=== PATIENT | female | born 1950 | race Caucasian/White ===

== ENCOUNTER 2017-10-04 09:20 | Inpatient (IN) | payer MEDICARE, BC ==
[~2017-10-04] VITALS: Ht 154.9 cm; Wt 87.4 kg
[~2017-10-04 09:20] MED LIST: DEXL60CA2 PO; DICL75TA2 PO; HYDR-3237 PO; LEVO75TA5 PO; LOSA25TA5 PO; MISO100T4 PO; SIMV20TA3 PO
[2017-10-04] MEDS ORDERED: VANCOMYCIN PER PHARMACY MC ONE (09:37)
[2017-10-04] MEDS ORDERED: MIDAZOLAM 1 MG/ML, 2ML ONE (09:58)
[2017-10-04] MEDS ORDERED: FENTANYL PF 250 MCG/5ML ONE (09:59)
[2017-10-04] MEDS ORDERED: GABAPENTIN 300 MG CAPSULE PO ONE (10:00)
[2017-10-04] MEDS ORDERED: OxyconTIN ER 10 MG TAB.ER PO ONE (10:00)
[2017-10-04] MEDS ORDERED: ACETAMINOPHEN 500 MG TABLET PO ONE (10:00)
[2017-10-04] MEDS ORDERED: ONDANSETRON ODT 8 MG PO ONE (10:00)
[2017-10-04] MEDS ORDERED: VANCOMYCIN 1,600 MG in SODIUM CHLORIDE 0.9% 250 ML IV ONE (10:30)
[2017-10-04] MEDS ORDERED: TRANEXAMIC ACID 100 MG/ML, 10ML ONE (10:55)
[2017-10-04] MEDS ORDERED: ROPIvacaine/PF 0.5%, 20 ML ONE (10:55)
[2017-10-04] MEDS ORDERED: KETOROLAC 60 MG/2 ML ONE (10:55)
[2017-10-04] MEDS ORDERED: EPINEPHRINE 1 MG/ML, 1ML ONE (10:56)
[2017-10-04] MEDS ORDERED: morphine SULFATE/PF 1 MG/ML, 10ML ONE (10:56)
[2017-10-04] MEDS ORDERED: SODIUM CHLORIDE 0.9% 100 ML ONE (10:56)
[2017-10-04] MEDS ORDERED: LACTATED RINGERS 1,000 ML IV SCH (11:13)
[2017-10-04] MEDS ORDERED: PROPOFOL 10 MG/ML, 20ML ONE (11:16)
[2017-10-04] MEDS ORDERED: CEFAZOLIN 1,000 MG ONE (11:16)
[2017-10-04] MEDS ORDERED: DEXAMETHASONE 4 MG/ML, 1ML ONE (11:16)
[2017-10-04] MEDS ORDERED: PROMETHAZINE 25 MG SUPP PR PRN (12:30)
[2017-10-04] MEDS ORDERED: MEPERIDINE/PF 25MG/0.5ML IVPush PRN (12:30)
[2017-10-04] MEDS ORDERED: HYDROmorphone 1 MG/ML, 1ML IV PRN (12:30)
[2017-10-04] MEDS ORDERED: hydrALAzine 20 MG/ML, 1ML IV PRN (12:30)
[2017-10-04] MEDS ORDERED: PROMETHAZINE 12.5 MG SUPP PR PRN (12:30)
[2017-10-04] MEDS ORDERED: ALBUTEROL SULFATE 2.5 MG/3 ML NPPB PRN (12:30)
[2017-10-04] MEDS ORDERED: ONDANSETRON 0.8 MG/ML ORAL SOL PO PRN (12:30)
[2017-10-04] MEDS ORDERED: PROMETHAZINE 25 MG/ML, 1ML IV PRN (12:30)
[2017-10-04] MEDS ORDERED: FENTANYL PF 100 MCG/2ML IV PRN (12:30)
[2017-10-04] MEDS ORDERED: OXYcodone 5 MG/5 ML ORAL.SOL UDC PO PRN (12:30)
[2017-10-04] MEDS ORDERED: PROMETHAZINE 25 MG/ML, 1ML IM PRN ×2 (12:30)
[2017-10-04] MEDS ORDERED: LABETALOL 5MG/ML, 20ML IV PRN (12:30)
[2017-10-04] MEDS ORDERED: MORPHINE SULFATE 4 MG/ML, 1ML ONE ×2 (13:05→13:27)
[2017-10-04] MEDS ORDERED: OXYcodone 5 MG/5 ML ORAL.SOL UDC ONE (13:06)
[2017-10-04] MEDS: MORPHINE SULFATE 4 MG/ML, 1ML IVPush PRN ×3 (13:09→13:29)
[2017-10-04 14:15] VITALS: BP 124/77
[2017-10-04] MEDS ORDERED: ZOLPIDEM 5MG TABLET PO PRN (15:00)
[2017-10-04] MEDS ORDERED: SENNA/DOCUSATE TABLET PO PRN (15:00)
[2017-10-04] MEDS ORDERED: ALUMINUM/MAG/SIMETHICONE 30 ML UDC PO PRN (15:00)
[2017-10-04] MEDS ORDERED: ACETAMINOPHEN 325 MG TABLET PO PRN (15:00)
[2017-10-04] MEDS ORDERED: HYDROmorphone 2MG TABLET PO PRN (15:00)
[2017-10-04] MEDS ORDERED: BISACODYL 10 MG SUPP PR PRN (15:00)
[2017-10-04] MEDS ORDERED: HYDROcodone/APAP 7.5-325MG/15ML UDC PO PRN (15:00)
[2017-10-04] MEDS ORDERED: MAGNESIUM HYDROXIDE 8%, 30ML UDC PO PRN (15:00)
[2017-10-04] MEDS: POTASSIUM CHLORIDE 10 MEQ in D5%-0.45% NACL 1,000 ML IV SCH (16:19)
[2017-10-04] MEDS: ONDANSETRON ODT 4 MG PO PRN (20:42)
[2017-10-04] MEDS: OXYcodone/APAP 5/325MG TABLET PO PRN (20:42)
[2017-10-04] MEDS: CEFAZOLIN PMX 1GM/50ML 50 ML IVPB SCH (20:43)
[2017-10-04] MEDS: DOCUSATE 100 MG CAPSULE PO SCH (20:43)
[2017-10-04] MEDS: MISOPROSTOL 100 MCG TABLET PO SCH (20:43)
[2017-10-04 20:45] VITALS: BP 116/76
[2017-10-04] MEDS ORDERED: SIMVASTATIN 20 MG TABLET PO SCH (21:00)
[2017-10-05 00:20] VITALS: BP 101/63
[2017-10-05] MEDS: ONDANSETRON ODT 4 MG PO PRN ×2 (01:44→13:52)
[2017-10-05] MEDS: OXYcodone/APAP 5/325MG TABLET PO PRN ×4 (01:45→13:36)
[2017-10-05 04:25] VITALS: BP 100/64
[2017-10-05] MEDS: CEFAZOLIN PMX 1GM/50ML 50 ML IVPB SCH (05:00)
[2017-10-05] MEDS ORDERED: ENOXAPARIN 30 MG/0.3 ML SQ SCH (06:00)
[2017-10-05] MEDS ORDERED: LEVOTHYROXINE 75 MCG TABLET PO SCH (06:00)
[2017-10-05] MEDS ORDERED: OMEPRAZOLE 20 MG CAPSULE.DR PO SCH (07:30)
[2017-10-05] MEDS: MISOPROSTOL 100 MCG TABLET PO SCH (07:38)
[2017-10-05 07:41] VITALS: BP 107/66
[2017-10-05] MEDS: DOCUSATE 100 MG CAPSULE PO SCH (07:43)
[2017-10-05] MEDS ORDERED: LOSARTAN 25MG TABLET PO SCH (09:00)
[2017-10-05] MEDS ORDERED: MULTIVITAMINS/MINERALS TABLET PO SCH (09:00)
[2017-10-05] MEDS: POTASSIUM CHLORIDE 10 MEQ in D5%-0.45% NACL 1,000 ML IV SCH (11:06)
[2017-10-05 13:07] VITALS: BP 111/74
[2017-10-05] MEDS ORDERED: OXYC-307 PO (14:50)
[2017-10-05] MEDS ORDERED: KETOROLAC 30 MG/1 ML IV SCH (15:00)
== END 2017-10-05 15:50 | disposition home or self-care (01) | DRG 470 ==
LOC: OUT 09:20 → 4NOR 14:16 → OUT 16:49 → 4NOR 16:50 → DCLOUNGE 10-05 15:40
PROVIDERS: ADMIT Orthopaedic Surgery; ATTEND Orthopaedic Surgery
PROC: 0SRC0J9 Replacement of Right Knee Joint with Synthetic Substitute, Cemented, Open Approach (ICD-10-PCS; principal; 2017-10-04 11:30)
DX: M17.11 Unilateral primary osteoarthritis, right knee (principal); E03.9 Hypothyroidism, unspecified; E78.1 Pure hyperglyceridemia; I10 Essential (primary) hypertension; K21.9 Gastro-esophageal reflux disease without esophagitis; Z82.49 Family history of ischemic heart disease and other diseases of the circulatory system; Z90.710 Acquired absence of both cervix and uterus; Z88.8 Allergy status to other drugs, medicaments and biological substances
CPT/HCPCS: C1713; J0171; J0690; J1100; J1650; J1885; J2250; J2274; J2704; J2795; J3010; J3370; J3480; Q0162; C1776; J7050; J7120